=== PATIENT | male | born 1955 | race African-American/Black ===

== ENCOUNTER 2018-07-11 10:46 | Emergency (ER) | payer OTHER ==
[~2018-07-11] VITALS: Ht 172.7 cm; Wt 78.0 kg
[~2018-07-11 10:46] MED LIST: AMLO5TAB7 PO; ASPI81TA50 PO; ATOR10TA60 PO; METO50TA29 PO; NITR0.4T SL; OMEP20TA63 PO
[2018-07-11] MEDS ORDERED: NAPR500T8 PO (11:42)
[2018-07-11] MEDS ORDERED: CYCL-331 PO (11:42)
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
[2018-07-11] MEDS ORDERED: KETOROLAC 60 MG/2 ML VIAL. IM ONE (12:15)
[2018-07-11] MEDS ORDERED: ORPHENADRINE CITRATE 60 MG/2 ML VIAL. IM ONE (12:15)
[2018-07-11 12:45] VITALS: BP 161/96
== END 2018-07-11 12:45 | disposition home or self-care (01) ==
LOC: ER 10:46
DX: S33.5XXA Sprain of ligaments of lumbar spine, initial encounter (principal); K21.9 Gastro-esophageal reflux disease without esophagitis; E78.00 Pure hypercholesterolemia, unspecified; I10 Essential (primary) hypertension; V89.2XXA Person injured in unspecified motor-vehicle accident, traffic, initial encounter; Y93.I9 Activity, other involving external motion; Y92.488 Other paved roadways as the place of occurrence of the external cause; Y99.8 Other external cause status
CPT/HCPCS: 96372; 99284; J1885; J2360

== ENCOUNTER → 2018-07-13 | Outpatient (CLI) | payer OTHER ==
[2018-07-11 12:45] VITALS: BP 161/96
[~2018-07-13] MED LIST changes: +CYCL-331 PO; +NAPR500T8 PO
[2018-07-13 08:28] LABS: ALBUMIN 3.5 g/dL (3.4-5.0); ALBUMIN/GLOBULIN RATIO 0.8 (1.0-1.7); CALCIUM 8.9 mg/dL (8.5-10.1); CREATININE 1.5 mg/dL (0.7-1.3); POTASSIUM 4.4 mmol/L (3.5-5.1); TOTAL BILIRUBIN 0.4 mg/dL (0.2-1.0); TOTAL PROTEIN 8.1 g/dL (6.4-8.2)
== END | disposition home or self-care (01) ==
LOC: LAB 07:58
PROVIDERS: ATTEND Internal Medicine Cardiovascular Disease
DX: E78.00 Pure hypercholesterolemia, unspecified (principal); I10 Essential (primary) hypertension; I25.10 Atherosclerotic heart disease of native coronary artery without angina pectoris; K21.9 Gastro-esophageal reflux disease without esophagitis; E78.5 Hyperlipidemia, unspecified; Z86.2 Personal history of diseases of the blood and blood-forming organs and certain disorders involving the immune mechanism; Z87.891 Personal history of nicotine dependence; Z95.0 Presence of cardiac pacemaker
CPT/HCPCS: 36415; 80053; 80061

== ENCOUNTER → 2019-11-27 | Outpatient (CLI) | payer OTHER ==
[~2019-11-27] MED LIST changes: +AMLO5TAB10 PO; -AMLO5TAB7 PO; -NITR0.4T SL; +NITR0.4T24 SL
[2019-11-27 08:17] LABS: BASO % 1 % (0-3); EOS # 0.1 x10^3/uL (0.0-0.7); EOS % 1 % (0-3); HEMATOCRIT 43.5 % (39.0-53.0); HEMOGLOBIN 13.6 g/dL (13.0-17.5); LYMPH # 2.3 x10^3/uL (1.0-4.8); LYMPH % 31 % (24-48); MEAN CORPUSCULAR HEMOGLOBIN 25 pg (25-35); MEAN CORPUSCULAR HGB CONC 31 g/dL (31-37); MEAN CORPUSCULAR VOLUME 79 fL (79-100); MONO # 0.7 x10^3/uL (0.0-1.1); MONO % 9 % (0-9); NEUT # 4.4 x10^3uL (1.8-7.7); NEUT % 59 % (31-73); PLATELET COUNT 209 x10^3/uL (140-400); RED BLOOD COUNT 5.47 x10^6/uL (4.30-5.70); WHITE BLOOD COUNT 7.5 x10^3/uL (4.0-11.0)
[2019-11-27 08:25] LABS: BILIRUBIN,URINE NEG (NEG); CLARITY,URINE CLEAR; COLOR,URINE YELLOW; GLUCOSE,URINE NEG (NEG)
[2019-11-27 08:26] LABS: BACTERIA,URINE 0 /HPF (0-FEW); NITRITE,URINE NEG (NEG); RBC,URINE 0 /HPF (0-2); SQUAMOUS EPITHELIAL CELL,UR OCC /LPF; UROBILINOGEN,URINE 0.2 mg/dL (0.2 mg/dL); WBC,URINE 0 /HPF (0-4)
[2019-11-27 08:27] LABS: CALCIUM 8.9 mg/dL (8.5-10.1); CREATININE 1.3 mg/dL (0.7-1.3); POTASSIUM 4.1 mmol/L (3.5-5.1)
== END | disposition home or self-care (01) ==
LOC: LAB 07:51
PROVIDERS: ATTEND Internal Medicine Cardiovascular Disease
DX: I44.30 Unspecified atrioventricular block (principal)
CPT/HCPCS: 36415; 80048; 81001; 85025

== ENCOUNTER → 2021-07-16 | Outpatient (CLI) | payer OTHER ==
[~2021-07-16] MED LIST changes: +AMLO-186 PO; -AMLO5TAB10 PO
--- NOTE | 2021-07-16 17:24 | RAD ---
EXAMINATION: CT LEFT LOWER LEG WITHOUT IV CONTRAST CLINICAL HISTORY: PAIN IN LOWER LEFT LEG TECHNIQUE: Noncontrast serial axial images obtained through the left lower leg with sagittal and irma nal reconstructions. CT Dose Reduction Employed: One or more of the following individualized dose reduction techniques wer e utilized for this examination: 1. Automated exposure control 2. Adjustment of the mA and/or kV ac cording to patient size 3. Use of iterative reconstruction technique. COMPARISON: None FINDINGS: No evidence of acute fracture. No evidence of destructive osseous lesion. Tricompartmental degenerative changes in the knee with small marginal osteophytes. Subchondral cysts and vacuum phenomenon in the medial compartment. No significant joint effusion. Small calcified joint body in the knee anterior to the lateral tibial spine. Degenerative changes in the proximal tibiofibular joint with small marginal osteophytes and subchondr al cysts. Joints at the ankle within normal limits. Nonspecific punctate metallic densities in the in the mid to distal peroneus longus muscle, distal fl exor hallucis longus muscle, and distal soleus muscle/Achilles myotendinous junction. Muscles and ten dons otherwise unremarkable on limited evaluation. No evidence of organized soft tissue collection or mass on limited noncontrast evaluation. Vascular calcifications. IMPRESSION: No acute osseous abnormality. Triangular mild degenerative changes left knee, greatest in the medial compartment. Nonspecific punctate metallic densities in the posterolateral distal lower leg as described, possibly retained foreign bodies or postsurgical. Electronically signed by: Isreal Almanza DO (07/16/2021 5:21 PM) [facility]
== END ==
LOC: CT 15:54
PROVIDERS: ATTEND Family Medicine
DX: M17.12 Unilateral primary osteoarthritis, left knee (principal); M25.762 Osteophyte, left knee; M25.862 Other specified joint disorders, left knee
CPT/HCPCS: 73700